=== PATIENT | female | born 2000 | race African-American/Black ===

== ENCOUNTER 2022-01-17 20:50 | Inpatient (IN) | payer OTHER ==
[~2022-01-17] VITALS: Ht 154.9 cm; Wt 74.8 kg
[2022-01-17] MEDS ORDERED: METHYLERGONOVINE MALEATE 0.2 MG/ML IM PRN (23:00)
[2022-01-17] MEDS ORDERED: MISOPROSTOL 100MCG TABLET VG SCH (23:00)
[2022-01-17] MEDS ORDERED: MISOPROSTOL 100MCG TABLET VG PRN (23:00)
[2022-01-17] MEDS ORDERED: RHO(D) IMMUNE GLOBULIN 300 MCG/SYR IM ONE (23:00)
[2022-01-17] MEDS ORDERED: NALOXONE HCL 0.4 MG/ML 1ML VIAL IM PRN (23:00)
[2022-01-17] MEDS ORDERED: BUTORPHANOL TARTRATE 2 MG/ML VIAL IV PRN (23:00)
[2022-01-17] MEDS ORDERED: CARBOPROST TROMETHAMINE 250 MCG/ML AMPUL IM PRN (23:00)
[2022-01-17] MEDS ORDERED: LIDOCAINE HCL 1% 10 MG/ML 10ML VIAL IJ NR (23:00)
[2022-01-17] MEDS ORDERED: OXYTOCIN 30 UNITS/500ML NS PMX 500 ML IV SCH (23:00)
[2022-01-17] MEDS ORDERED: AMPICILLIN 2GM in NS 100ML 100 ML IV NR (23:30)
[2022-01-18] MEDS: LACTATED RINGERS 1,000 ML IV SCH ×3 (00:31→14:11)
[2022-01-18 00:44] LABS: BASOPHILS % 0.1 % (0.0-2.0); HEMATOCRIT. 29.7 % (36.0-48.0); HEMOGLOBIN. 9.4 g/dL (12.0-16.0); LYMPHOCYTES % 11.8 % (20.0-50.0); MEAN CORPUSCULAR HEMOGLOBIN 24.4 pg (28.0-32.0); MEAN PLATELET VOLUME 7.7 fl (7.4-10.4); MONOCYTES % 13.1 % (2.0-8.0); PLATELET 365 x1000/uL (130-400); RED BLOOD CELL COUNT 3.86 mill/uL (4.2-5.4); RED CELL DISTRIBUTION WIDTH 15.8 % (11.6-14.6)
[2022-01-18 01:04] LABS: CLARITY URINE CLEAR (CLEAR); COLOR URINE YELLOW (YELLOW); KETONES URINE TRACE (NEGATIVE); LEUKOCYTE ESTERASE URINE TRACE (NEGATIVE); NITRITE URINE NEGATIVE (NEGATIVE); OCCULT BLOOD URINE NEGATIVE (NEGATIVE); PH URINE 6.5 (4.5-8.0); PROTEIN URINE 1+ (NEGATIVE); SPECIFIC GRAVITY URINE 1.026 (1.005-1.030)
[2022-01-18 01:16] LABS: HEPATITIS B SURFACE ANTIGEN NEGATIVE
[2022-01-18 01:26] LABS: *AMPHETAMINES SCREEN URINE NEGATIVE (NEGATIVE); *BARBITURATES SCREEN URINE NEGATIVE (NEGATIVE); *BENZODIAZEPINES SCREEN URINE NEGATIVE (NEGATIVE); *COCAINE SCREEN URINE NEGATIVE (NEGATIVE); CANNABINOID URINE SCREEN NEGATIVE (NEGATIVE); METHADONE URINE SCREEN NEGATIVE (NEGATIVE); OPIATES URINE SCREEN NEGATIVE (NEGATIVE); PHENCYCLIDINE URINE SCREEN NEGATIVE (NEGATIVE)
[2022-01-18 01:50] LABS: INR 0.9; PARTIAL THROMBOPLASTIN TIME 26.8 sec (23.4-31.0); PROTHROMBIN TIME 9.8 sec (9.6-11.0)
[2022-01-18] MEDS ORDERED: LIDOCAINE HCL 2%/EPINEPHRINE 1:100,000 20 ML VIAL INFIL ONE (05:30)
[2022-01-18] MEDS ORDERED: MISOPROSTOL 100MCG TABLET VG SCH (05:30)
[2022-01-18] MEDS: AMPICILLIN 1,000 MG in SODIUM CHLORIDE 0.9% 50 ML IV SCH ×2 (07:00→14:14)
[2022-01-18] MEDS ORDERED: ROPIVACAINE HCL/PF EPIDURAL 200 ML EPI SCH (07:45)
[2022-01-18] MEDS ORDERED: FENTANYL CITRATE/PF 50MCG/ML 2ML VIAL ONE ×3 (07:51→15:41)
[2022-01-18] MEDS ORDERED: ROPIVACAINE HCL/PF EPIDURAL 200 ML EPI ONE (07:51)
[2022-01-18] MEDS ORDERED: MORPHINE SULFATE/PF 1MG/ML 10ML AMP ONE (14:54)
[2022-01-18] MEDS ORDERED: CEFAZOLIN SODIUM 1000MG/VIAL ONE (15:11)
[2022-01-18] MEDS ORDERED: OXYTOCIN 10 UNITS/ML 1ML ONE (15:23)
[2022-01-18] MEDS ORDERED: MIDAZOLAM HCL 2 MG/2 ML VIAL ONE ×2 (15:24→15:27)
[2022-01-18] MEDS ORDERED: KETAMINE HCL 50 MG/ML 10ML ONE (15:25)
[2022-01-18] MEDS ORDERED: DIPHENHYDRAMINE 50MG/ML VIAL ONE (15:40)
[2022-01-18] MEDS ORDERED: HYDROMORPHONE HCL/PF 2MG/ML CPJ IM PRN (16:30)
[2022-01-18] MEDS ORDERED: DIPHENHYDRAMINE 25MG CAPSULE PO PRN (16:30)
[2022-01-18] MEDS ORDERED: BISACODYL 10MG SUPP PR PRN (16:30)
[2022-01-18] MEDS ORDERED: IBUPROFEN 400MG TABLET PO PRN (16:30)
[2022-01-18] MEDS ORDERED: KETOROLAC 30MG/ML VIAL IV SCH (16:45)
[2022-01-18] MEDS ORDERED: NALOXONE HCL 0.4 MG/ML 1ML VIAL IV PRN (16:45)
[2022-01-18] MEDS ORDERED: BUTORPHANOL TARTRATE 2 MG/ML VIAL IV PRN (16:45)
[2022-01-18] MEDS ORDERED: DIPHENHYDRAMINE 50MG/ML VIAL IV PRN (16:45)
[2022-01-18 20:00] VITALS: BP 106/61
[2022-01-18] MEDS ORDERED: PNV1TABL50 MT (20:51)
[2022-01-19 04:00] VITALS: BP 103/67
[2022-01-19] MEDS: FERROUS SULFATE 325MG TABLET PO SCH ×3 (07:30→17:53)
[2022-01-19 07:45] VITALS: BP 110/59
[2022-01-19] MEDS: PRENATAL VIT/FE FUMARATE/FA TABLET PO SCH (09:00)
[2022-01-19 09:19] LABS: BASOPHILS % 0.2 % (0.0-2.0); EOSINOPHILS % 0.8 % (0.0-5.0); HEMATOCRIT. 24.6 % (36.0-48.0); HEMOGLOBIN. 7.9 g/dL (12.0-16.0); LYMPHOCYTES % 11.1 % (20.0-50.0); MEAN CORPUSCULAR HEMOGLOBIN 24.8 pg (28.0-32.0); MEAN CORPUSCULAR VOLUME 77.5 fL (81.0-99.0); MEAN PLATELET VOLUME 7.3 fl (7.4-10.4); MONOCYTES % 13.3 % (2.0-8.0); NEUTROPHILS % 74.6 % (40.0-76.0); PLATELET 284 x1000/uL (130-400); RED BLOOD CELL COUNT 3.17 mill/uL (4.2-5.4); RED CELL DISTRIBUTION WIDTH 15.9 % (11.6-14.6)
[2022-01-19] MEDS: IBUPROFEN 800MG TABLET PO PRN ×2 (15:17→20:54)
[2022-01-19 15:27] VITALS: BP 119/65
[2022-01-19 20:00] VITALS: BP 100/55
[2022-01-20 04:00] VITALS: BP 114/79
[2022-01-20 07:30] VITALS: BP 105/61
[2022-01-20 07:47] LABS: BASOPHILS % 0.1 % (0.0-2.0); EOSINOPHILS % 1.6 % (0.0-5.0); HEMATOCRIT. 25.1 % (36.0-48.0); HEMOGLOBIN. 8.1 g/dL (12.0-16.0); LYMPHOCYTES % 15.1 % (20.0-50.0); MEAN CORPUSCULAR HEMOGLOBIN 24.9 pg (28.0-32.0); MEAN CORPUSCULAR VOLUME 76.9 fL (81.0-99.0); MEAN PLATELET VOLUME 7.3 fl (7.4-10.4); NEUTROPHILS % 72.2 % (40.0-76.0); PLATELET 336 x1000/uL (130-400); RED BLOOD CELL COUNT 3.26 mill/uL (4.2-5.4)
[2022-01-20] MEDS: IBUPROFEN 800MG TABLET PO PRN (07:49)
[2022-01-20] MEDS: PRENATAL VIT/FE FUMARATE/FA TABLET PO SCH (07:49)
[2022-01-20] MEDS: FERROUS SULFATE 325MG TABLET PO SCH ×2 (07:49→12:30)
[2022-01-20] MEDS ORDERED: IBUP-2030 PO (12:01)
== END 2022-01-20 13:45 | disposition home or self-care (01) | DRG 540 ==
LOC: OBSVTOIN 20:50 → 8 EST LDRP 20:50 → 8EST 22:44 → 8 EST LDRP 22:45 → 8EST 01-18 23:13
PROVIDERS: ADMIT Obstetrics & Gynecology; ATTEND Obstetrics & Gynecology
PROC: 10D00Z1 Extraction of Products of Conception, Low, Open Approach (ICD-10-PCS; principal; 2022-01-18)
DX: O41.03X0 Oligohydramnios, third trimester, not applicable or unspecified (principal); O69.0XX0 Labor and delivery complicated by prolapse of cord, not applicable or unspecified; O76 Abnormality in fetal heart rate and rhythm complicating labor and delivery; O69.2XX0 Labor and delivery complicated by other cord entanglement, with compression, not applicable or unspecified; O99.02 Anemia complicating childbirth; Z37.0 Single live birth; Z3A.39 39 weeks gestation of pregnancy
CPT/HCPCS: 36415; 76805; 76818; 80305; 81003; 85025; 86592; 86703; 86762; 86850; 86900; 87340; 87426; 88307; 99281; J0290; J0595; J0690; J1200; J1885; J2250; J2274; J2795; J3010; J3490; J7120; A4315; J2590